=== PATIENT | female | born 1975 | race Caucasian/White ===

== ENCOUNTER 2018-02-28 16:50 | Emergency (ER) | payer OTHER ==
--- NOTE | 2018-02-28 18:16 | ED Physician Documentation ---
PD HPI ABD PAIN - Stated complaint Stated Complaint: ABDOMINAL/BACK PAIN - Chief complaint Chief Complaint: Abd Pain - History obtained from History obtained from: Patient, Family - History of Present Illness Timing - onset: How many weeks ago (1) Timing - duration: Weeks (1) Timing - details: Gradual onset Pain level max: 6 Pain level now: 5 Quality: Aching, Dull, Pain Location: LUQ Radiation: Left flank Improved by: Laying still Worsened by: Moving, Palpation. No: Breathing Associated symptoms: No: Fever, Nausea, Vomiting, Hematemesis, Diarrhea, Constipation, Melena, Hematochezia, Dysuria Similar symptoms before: Has not had sx before Recently seen: Clinic (PCP yesterday for same.) - Additional information Additional information: Patient is a 42-year-old female with a one-week history of left flank pain. She states that is worse when she moves or "scrunches herself up into a ball". She saw her PCP yesterday for same and thought it may be secondary to muscle pain, but she had increased pain today so came to the emergency department. No vomiting. No fevers. No blood in the urine. No dysuria. Has never had similar symptoms. Review of Systems Ten Systems: 10 systems reviewed and negative Constitutional: denies: Fever, Chills Ears: denies: Ear pain Nose: denies: Rhinorrhea / runny nose, Congestion Cardiac: denies: Chest pain / pressure Respiratory: denies: Cough Skin: denies: Rash Musculoskeletal: denies: Neck pain, Back pain Neurologic: denies: Focal weakness, Numbness PD PAST MEDICAL HISTORY - Past Medical History Past Medical History: Yes Psych: Depression - Past Surgical History Past Surgical History: No - Allergies Allergies/Adverse Reactions: Allergies Allergy/AdvReac Type Severity Reaction Status Date / Time No Known Drug Allergies Allergy Verified 02/28/18 17:03 - Living Situation Living Situation: reports: With family Living Arrangement: reports: At home - Social History Does the pt smoke?: No Does the pt drink ETOH?: No Does the pt have substance abuse?: No - Family History Family history: reports: Non contributory PD ED PE NORMAL - Vitals Vital signs reviewed: Yes - General General: Alert and oriented X 3, No acute distress, Well developed/nourished - HEENT HEENT: Moist mucous membranes - Neck Neck: Supple, no meningeal sign - Cardiac Cardiac: RRR, Strong equal pulses - Respiratory Respiratory: No respiratory distress, Clear bilaterally - Abdomen Abdomen: Normal bowel sounds, Soft, Non distended, Other (Mild tender palpation left upper quadrant and epigastric on deep palpation. No peritoneal signs.) - Back Back: No CVA TTP, No spinal TTP - Derm Derm: Warm and dry - Extremities Extremities: No edema, No calf tenderness / cord - Neuro Neuro: Alert and oriented X 3 - Psych Psych: Normal mood, Normal affect Results - Vitals Vitals: Vital Signs - 24 hr 02/28/18 02/28/18 02/28/18 16:57 18:42 20:26 Temperature 37.5 C Heart Rate 81 53 L 60 Respiratory 20 18 16 Rate Blood Pressure 136/86 H 122/93 H 127/83 H O2 Saturation 100 92 95 02/28/18 20:45 Temperature 36.3 C L Heart Rate 81 Respiratory 16 Rate Blood Pressure 110/64 O2 Saturation 100 Oxygen O2 Source Room air - Labs Labs: Laboratory Tests 02/28/18 02/28/18 02/28/18 08:10 18:10 18:10 WBC 7.0 RBC 4.14 L Hgb 13.2 Hct 39.3 MCV 94.8 MCH 32.0 H MCHC 33.7 RDW 11.8 L Plt Count 303 MPV 7.7 L Neut # (Auto) 3.8 Lymph # (Auto) 2.6 [place] # (Auto) 0.4 Eos # (Auto) 0.2 Baso # (Auto) 0.1 Absolute Nucleated RBC 0.00 Nucleated RBC % 0.0 D-Dimer Sodium 139 Potassium 3.4 L Chloride 105 Carbon Dioxide 27 Anion Gap 7.0 BUN 12 Creatinine 0.7 Estimated GFR (MDRD) 91 Glucose 90 Calcium 9.3 Total Bilirubin 0.4 AST 18 ALT 17 Alkaline Phosphatase 31 L Total Protein 6.7 Albumin 4.0 Globulin 2.7 Albumin/Globulin Ratio 1.5 Lipase 47 Urine Color YELLOW Urine Clarity CLEAR Urine pH 7.0 Ur Specific [place] <=1.005 Urine Protein NEGATIVE Urine Glucose (UA) NEGATIVE Urine Ketones NEGATIVE Urine Occult Blood NEGATIVE Urine Nitrite NEGATIVE Urine Bilirubin NEGATIVE Urine Urobilinogen 0.2 (NORMAL) Ur Leukocyte Esterase NEGATIVE Ur Microscopic Review NOT INDICATED Urine Culture Comments NOT INDICATED Urine HCG, Qual NEGATIVE 02/28/18 18:10 WBC RBC Hgb Hct MCV MCH MCHC RDW Plt Count MPV Neut # (Auto) Lymph # (Auto) [place] # (Auto) Eos # (Auto) Baso # (Auto) Absolute Nucleated RBC Nucleated RBC % D-Dimer 410.2 H Sodium Potassium Chloride Carbon Dioxide Anion Gap BUN Creatinine Estimated GFR (MDRD) Glucose Calcium Total Bilirubin AST ALT Alkaline Phosphatase Total Protein Albumin Globulin Albumin/Globulin Ratio Lipase Urine Color Urine Clarity Urine pH Ur Specific [place] Urine Protein Urine Glucose (UA) Urine Ketones Urine Occult Blood Urine Nitrite Urine Bilirubin Urine Urobilinogen Ur Leukocyte Esterase Ur Microscopic Review Urine Culture Comments Urine HCG, Qual - Rads (name of study) CT PA Radiology: Prelim report reviewed, EMP read contemporaneously, See rad report ( normal) PD MEDICAL DECISION MAKING - ED course Complexity details: reviewed results, re-evaluated patient, considered differential, d/w patient, d/w family ED course: Patient is a 42-year-old female who presents to the emergency department with left upper quadrant/left flank pain of unclear etiology. She did have a mildly elevated d-dimer and concern for possible left lower lobe pulmonary embolus causing left flank pain, CT pulmonary angiogram was negative. She declines any pain medication here or for home. Urinalysis is negative. No evidence of hydronephrosis or pyelonephritis on CT scan. No evidence of injury to the spleen. Unclear etiology of her symptoms. Possible musculoskeletal? We will have her follow-up with her doctor for further care. Patient counseled regarding signs and symptoms for which I believe and urgent re-evaluation would be necessary. Patient with good understanding of and agreement to plan and is comfortable going home at this time This document was made in part using voice recognition software. While efforts are made to proofread this document, sound alike and grammatical errors may occur. - Sepsis Event Vital Signs: Vital Signs - 24 hr 02/28/18 02/28/18 02/28/18 16:57 18:42 20:26 Temperature 37.5 C Heart Rate 81 53 L 60 Respiratory 20 18 16 Rate Blood Pressure 136/86 H 122/93 H 127/83 H O2 Saturation 100 92 95 02/28/18 20:45 Temperature 36.3 C L Heart Rate 81 Respiratory 16 Rate Blood Pressure 110/64 O2 Saturation 100 Oxygen O2 Source Room air Departure - Departure Disposition: 01 Home, Self Care Clinical Impression: Flank pain Condition: Good Instructions: ED Flank Pain Uncertain Cause Follow-Up: Leelee Manuel PA-C [Primary Care Provider] - Within 1 week Comments: Return if you worsen. The cause of your symptoms is unclear tonight. Discharge Date/Time: 02/28/18 20:50
[2018-02-28 18:23] LABS: BILIRUBIN,URINE NEGATIVE (NEGATIVE); GLUCOSE, URINE (UA) NEGATIVE (NEGATIVE); KETONES,URINE (UA) NEGATIVE (NEGATIVE); LEUKOCYTE ESTERASE, URINE NEGATIVE (NEGATIVE); NITRITE,URINE NEGATIVE (NEGATIVE); OCCULT BLOOD,URINE NEGATIVE (NEGATIVE); PROTEIN,URINE NEGATIVE (NEGATIVE); UROBILINOGEN,URINE 0.2 (NORMAL) E.U./dL (NORMAL)
[2018-02-28 18:28] LABS: CLARITY,URINE CLEAR (CLEAR); HCG UR QUAL NEGATIVE
[2018-02-28 18:28] LABS: BASOPHILS # (AUTO) 0.1 10^3/uL (0.0-0.1); BASOPHILS % (AUTO) 0.9 %; EOSINOPHILS # (AUTO) 0.2 10^3/uL (0.0-0.7); EOSINOPHILS % (AUTO) 2.5 %; HGB - HEMOGLOBIN 13.2 g/dL (12.0-16.0); LYMPHOCYTES # (AUTO) 2.6 10^3/uL (1.5-3.5); LYMPHOCYTES % (AUTO) 37.4 %; MEAN CORPUSCULAR HGB CONC 33.7 g/dL (32.0-36.0); MEAN CORPUSCULAR VOLUME 94.8 fL (81.0-99.0); MEAN PLATELET VOLUME 7.7 fL (7.9-10.8); MONOCYTES # (AUTO) 0.4 10^3/uL (0.0-1.0); MONOCYTES % (AUTO) 5.7 %; NEUTROPHILS # (AUTO) 3.8 10^3/uL (1.5-6.6); NEUTROPHILS % (AUTO) 53.5 %; PLT - PLATELET COUNT 303 10^3/uL (130-450); RED BLOOD COUNT 4.14 10^6/uL (4.20-5.40); RED CELL DISTRIBUTION WIDTH 11.8 % (12.0-15.0)
[2018-02-28 18:33] LABS: ALBUMIN/GLOBULIN RATIO 1.5 (1.0-2.2); BILIRUBIN,TOTAL 0.4 mg/dL (0.2-1.0); CALCIUM 9.3 mg/dL (8.5-10.3); CREATININE 0.7 mg/dL (0.4-1.0); TOTAL PROTEIN 6.7 g/dL (6.7-8.2)
[2018-02-28] MEDS ORDERED: IOPAMIDOL-300 100 ML VIAL ONE (19:21)
[2018-02-28] MEDS ORDERED: IOPAMIDOL-300 100 ML VIAL IVP ONE (19:36)
[2018-02-28] MEDS ORDERED: LIDOCAINE VISCOUS 2% 15 ML UDC MM STA (19:43)
[2018-02-28] MEDS ORDERED: MAG HYDROX/AL HYDROX/SIMETH 30 ML UDC PO STA (19:43)
[2018-02-28] MEDS ORDERED: PHENobarb/HYOSCY/ATROPINE/SCOP 5 ML UDC PO STA (19:43)
[2018-02-28] MEDS ORDERED: SUCRALFATE 1 GM/10 ML UDC PO STA (19:43)
--- NOTE | 2018-02-28 20:03 | CT Preliminary Report ---
Exam: CT CHEST ANGIO (PE) IMPRESSION: Normal pulmonary CT angiogram. No pulmonary emboli. [facility] SITE ID: [id number]
--- NOTE | 2018-02-28 20:03 | CT Report ---
EXAM: CT ANGIOGRAM CHEST EXAM DATE: 02/28/2018 07:45 PM. CLINICAL HISTORY: L flank pain, elevated d-dimer. COMPARISON: None. TECHNIQUE: Routine helical imaging was performed through the chest in the pulmonary arterial phase. I V Contrast: 80ML ISOVUE 300. Reconstructions: Coronal 3-D MIP reconstructions.Sagittal and coronal. In accordance with CT protocol optimization, one or more of the following dose reduction techniques w ere utilized for this exam: automated exposure control, adjustment of mA and/or KV based on patient s ize, or use of iterative reconstructive technique. FINDINGS: Pulmonary Arteries: Diagnostic quality: Adequate through the segmental arteries. No evidence for acute or chronic pulmona ry emboli. RV/LV is within normal limits. There is no interventricular septal bowing. There is no reflux of cont rast material in the IVC. Lungs/Pleura: No consolidation, nodules, or edema. No effusions or pneumothorax. Mediastinum: Normal. No cardiac enlargement or adenopathy. Thoracic Aorta: Unremarkable. Upper Abdomen: Unremarkable. Other: None. IMPRESSION: Normal pulmonary CT angiogram. No pulmonary emboli. [facility] Referring Provider Line: [phone] SITE ID: [id number]
[2018-02-28 21:42] VITALS: BP 110/64
== END 2018-02-28 20:50 | disposition home or self-care (01) ==
LOC: ED 16:50
DX: R10.12 Left upper quadrant pain (principal); R10.32 Left lower quadrant pain
CPT/HCPCS: 36415; 71275; 80053; 81003; 81025; 83690; 85025; 85379; 99283; A9270; Q9967; 81001; 87086

== ENCOUNTER 2019-03-11 08:16 | Emergency (ER) | payer OTHER ==
[2019-03-11] MEDS ORDERED: diphenhydrAMINE 25 MG CAPSULE PO STA (08:29)
[2019-03-11] MEDS ORDERED: FAMOTIDINE 20 MG TABLET PO STA (08:29)
[2019-03-11] MEDS ORDERED: predniSONE 20 MG TABLET PO STA (08:29)
--- NOTE | 2019-03-11 08:36 | ED Physician Documentation ---
History of Present Illness - Stated complaint Stated Complaint: ALLERGIC REACTION - Chief complaint Chief Complaint: Allergic Rx - History obtained from History obtained from: Patient - History of Present Illness Timing: Prior to arrival - Additonal information Additional information: Patient is a 43-year-old female presenting with concerns for possible allergic reaction. Patient reports that she has been taking all of her prescription and rrqz-kur-eahsoyi supplement medications appropriately and did so this morning. Patient reports taking turmeric, vitamin B, and CBD oil. No niacin. Patient believes she may have taken more than her usual CBD oil. Patient otherwise denies any new medications, foods, lotions, chemicals, detergents. Patient denies any other kind of exposure. Patient has no known allergies. Patient complains of rushing to chest and arms with mild burning sensation, as well as scratchy throat. No difficulty swallowing or breathing. No other oral swelling, hives, or rash. Patient has not yet taken any medications. No other improving or worsening factors noted. 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 - Present Medications Home Medications: Ambulatory Orders Medication Instructions Recorded Confirmed B-Complex with Vitamin C [Vitamin 1 each PO DAILY 03/11/19 03/11/19 B-Complex with Vit C] Bupropion HCl [Wellbutrin Xl] 300 mg PO DAILY 03/11/19 03/11/19 Cholecalciferol [Vitamin D3] 1 cap PO DAILY 03/11/19 03/11/19 Turmeric Root Extract [Turmeric 500 mg PO DAILY 03/11/19 03/11/19 Curcumin] lamoTRIgine [Lamictal] 1 tab PO DAILY 03/11/19 03/11/19 predniSONE [Deltasone] 10 mg PO [id number] #42 tab 03/11/19 - Allergies Allergies/Adverse Reactions: Allergies Allergy/AdvReac Type Severity Reaction Status Date / Time No Known Drug Allergies Allergy Verified 03/11/19 08:27 - Social History Does the pt smoke?: No Smoking Status: Never smoker Does the pt drink ETOH?: No Does the pt have substance abuse?: No - Immunizations Immunizations are current?: Yes PD ED PE NORMAL - Vitals Vital signs reviewed: Yes - General General: Alert and oriented X 3, No acute distress, Well developed/nourished - HEENT HEENT: Atraumatic, Moist mucous membranes, Pharynx benign, Dentition benign, Other (No lip or intraoral swelling noted) - Cardiac Cardiac: RRR, No murmur - Respiratory Respiratory: No respiratory distress, Clear bilaterally - Abdomen Abdomen: Soft, Non tender, Non distended - Derm Derm: Warm and dry, No rash. No: Normal color (Slight flushing to upper chest and both arms) - Extremities Extremities: No deformity, No tenderness to palpate - Neuro Neuro: Alert and oriented X 3, No motor deficit, No sensory deficit - Psych Psych: Other (Slightly anxious) Results - Vitals Vitals: Vital Signs - 24 hr 03/11/ 08:20 Temperature 36.8 C Heart Rate 73 Respiratory 20 Rate Blood Pressure 132/93 H O2 Saturation 96 Oxygen O2 Source Room air PD MEDICAL DECISION MAKING - ED course Complexity details: re-evaluated patient, considered differential, d/w patient ED course: Patient presenting with concern for possible allergic reaction. Patient has no known allergies and has no new exposures except patient did use slightly more than her usual CBD oil. However, did not find evidence of particular intoxication, toxidrome, or withdrawal symptoms.No obvious hives or other rash on exam, but mild flushing. Patient denies any use of niacin. No intraoral issues. At this time, felt most appropriate to treat as allergic reaction with oral medications. No anaphylaxis symptoms found and patient does not require epinephrine. Discussed treatment plan with patient who is comfortable with such. Otherwise, do not feel she requires invasive testing, imaging, consult, hospitalization at this time. Patient continued to be monitored in the ED with resolution of symptoms and no recurrence. Patient comfortable with discharge home on oral prednisone and discussed other malx-rkm-lyebwmv medications, supportive cares, return precautions, and follow-up. Patient voiced understanding and comfortable with discharge plan.Of note, do not feel patient requires EpiPen prescription at this time given low suspicion for anaphylaxis or other significant allergic reaction. Departure - Departure Disposition: 01 Home, Self Care Clinical Impression: Allergic reaction Qualifiers: Encounter type: initial encounter Qualified Code(s): T78.40XA - Allergy, unspecified, initial encounter Condition: Good Instructions: ED Allergic Reaction General Other Follow-Up: Leelee Tyler ARNP, INDUSTRIAL [employer]ATIONS WORKER-C [Primary Care Provider] - Within 3 Days Prescriptions: predniSONE [Deltasone] 10 mg PO [id number] #42 tab Comments: Please take steroids as prescribed to help avoid any recurrence of allergic reaction. If needed, may use tdkb-epw-xiembcy antihistamine such as Benadryl. Recommend follow-up with primary care physician in next 2 to 3 days and return to ED sooner if experience recurrence of reaction or other concerns.
[2019-03-11 10:12] VITALS: BP 124/70
== END 2019-03-11 10:12 | disposition home or self-care (01) ==
LOC: ED 08:16
DX: T78.40XA Allergy, unspecified, initial encounter (principal); F32.9 Major depressive disorder, single episode, unspecified
CPT/HCPCS: 99283; A9270; J7512

== ENCOUNTER 2019-03-22 14:34 | Outpatient (CLI) | payer OTHER ==
--- NOTE | 2019-03-23 12:03 | Mammography Report ---
Reason: SCREENING MAMMOGRAM FOR BREAST CANCER Procedure Date: 03/22/2019 Accession Number: [id number] / [id number] Procedure: LYNDSAY - Screening Mammo w/[facility] CPT Code: FULL RESULT: EXAM: Screening Mammo w/[facility] DATE: 03/22/2019 3:27 PM CLINICAL HISTORY: Routine screening TECHNIQUE: (B) - Bilateral CC and MLO views were obtained. COMPARISON: 11/23/2010 PARENCHYMAL PATTERN: (D) - The breasts demonstrate heterogeneously dense fibroglandular parenchyma bilaterally. FINDINGS: No significant interval change. There are no suspicious masses, calcifications, or areas of distortion. IMPRESSION: Negative examination. BI-RADS category 1. RECOMMENDATION: (ANNUAL) - Recommend routine annual screening mammography. BI-RADS CATEGORY: (1) - Negative. STANDARD QUALIFYING STATEMENTS: 1. This examination was not reviewed with the aid of Computer-Aided Detection (CAD). 2. A negative or benign imaging report should not preclude biopsy if clinically suspicious findings are present. 3. Dense breasts may obscure an underlying neoplasm. 4. This examination was reviewed with the aid of 3D breast imaging (tomosynthesis).
== END 2019-03-22 14:35 | disposition home or self-care (01) ==
LOC: DI 14:34
PROVIDERS: ATTEND Nurse Practitioner
DX: Z12.31 Encounter for screening mammogram for malignant neoplasm of breast (principal)
CPT/HCPCS: 77063; 77067

== ENCOUNTER 2020-12-11 11:29 | Outpatient (CLI) | payer OTHER ==
--- NOTE | 2020-12-12 09:28 | Mammography Report ---
BILATERAL DIGITAL SCREENING MAMMOGRAM 3D/2D: 12/11/2020 CLINICAL: Routine screening. Comparison is made to exams dated: 03/22/2019 mammogram, 11/23/2010 mammogram, and 11/23/2010 ultrasound - [facility]. There are scattered fibroglandular elements in both breasts. No significant masses, calcifications, or other findings are seen in either breast. There has been no significant interval change. IMPRESSION: NEGATIVE There is no mammographic evidence of malignancy. A 1 year screening mammogram is recommended. This exam was interpreted at Station ID: [id number]. NOTE: For mammograms, a report in lay terms will be sent to the patient. Approximately 15% of breast malignancies will not be visualized mammographically. In the management of a palpable breast mass, a negative mammogram must not discourage biopsy of a clinically suspicious lesion. Electronically Signed By: Dionicio Chapin acr/penrad:12/11/2020 12:44:26 ACR BI-RADS Category 1: Negative 3341F PARENCHYMAL PATTERN: (A) - The breast(s) demonstrate(s) scattered fibroglandular densities. BI-RADS CATEGORY: (1) - 1 RECOMMENDATION: (ANNUAL) - Recommend routine annual screening mammography. [id number] 1 year screening LATERALITY: (B)
== END 2020-12-11 11:30 | disposition home or self-care (01) ==
LOC: DI.N 11:29
PROVIDERS: ATTEND Nurse Practitioner Obstetrics & Gynecology
DX: Z12.31 Encounter for screening mammogram for malignant neoplasm of breast (principal)

== ENCOUNTER 2021-05-29 18:44 | Emergency (ER) | payer OTHER ==
[2021-05-29 19:21] LABS: BILIRUBIN,URINE NEGATIVE (NEGATIVE); GLUCOSE, URINE (UA) NEGATIVE (NEGATIVE); KETONES,URINE (UA) 15 mg/dL (NEGATIVE); LEUKOCYTE ESTERASE, URINE NEGATIVE (NEGATIVE); NITRITE,URINE NEGATIVE (NEGATIVE); OCCULT BLOOD,URINE NEGATIVE (NEGATIVE); PROTEIN,URINE NEGATIVE (NEGATIVE); UROBILINOGEN,URINE 0.2 (NORMAL) E.U./dL (NORMAL)
[2021-05-29 19:22] LABS: BASOPHILS # (AUTO) 0.1 10^3/uL (0.0-0.1); BASOPHILS % (AUTO) 0.7 %; EOSINOPHILS # (AUTO) 0.2 10^3/uL (0.0-0.7); EOSINOPHILS % (AUTO) 2.1 %; HCT - HEMATOCRIT 40.1 % (37.0-47.0); HGB - HEMOGLOBIN 13.5 g/dL (12.0-16.0); LYMPHOCYTES % (AUTO) 23.7 %; MEAN CORPUSCULAR HEMOGLOBIN 32.3 pg (27.0-31.0); MEAN CORPUSCULAR HGB CONC 33.7 g/dL (32.0-36.0); MEAN CORPUSCULAR VOLUME 95.9 fL (81.0-99.0); MEAN PLATELET VOLUME 9.2 fL (7.9-10.8); MONOCYTES # (AUTO) 0.5 10^3/uL (0.0-1.0); MONOCYTES % (AUTO) 6.1 %; NEUTROPHILS # (AUTO) 5.5 10^3/uL (1.5-6.6); PLT - PLATELET COUNT 313 10^3/uL (130-450); RED BLOOD COUNT 4.18 10^6/uL (4.20-5.40); RED CELL DISTRIBUTION WIDTH 11.6 % (12.0-15.0); WHITE BLOOD COUNT 8.2 x10^3/uL (4.8-10.8)
[2021-05-29 19:22] LABS: CLARITY,URINE CLEAR (CLEAR); HCG UR QUAL NEGATIVE
[2021-05-29 19:33] LABS: ALBUMIN 4.4 g/dL (3.2-5.5); ALBUMIN/GLOBULIN RATIO 1.7 (1.0-2.2); BILIRUBIN,TOTAL 0.8 mg/dL (0.2-1.0); CALCIUM 9.9 mg/dL (8.5-10.3); CREATININE 0.8 mg/dL (0.4-1.0); POTASSIUM 3.5 mmol/L (3.5-5.0)
--- NOTE | 2021-05-29 21:54 | ED Physician Documentation ---
PD HPI ABD PAIN - Stated complaint Stated Complaint: ABD PX - Chief complaint Chief Complaint: Abd Pain - History obtained from History obtained from: Patient - History of Present Illness Timing - onset: Today (at 4 pm, so 3 hours ago) Timing - duration: Hours (3) Timing - details: Abrupt onset, Still present Quality: Cramping, Aching, Pain Location: RLQ Radiation: Right flank. No: Chest Improved by: Laying still. No: Eating Worsened by: Moving, Palpation. No: Breathing Associated symptoms: Nausea. No: Fever, Vomiting, Diarrhea, Constipation (has had some firmer stools but were softer yesterday. No prior abd surgery.) Review of Systems Constitutional: denies: Fever, Chills Nose: denies: Rhinorrhea / runny nose, Congestion Throat: denies: Sore throat Cardiac: denies: Chest pain / pressure Respiratory: denies: Cough GI: reports: Abdominal Pain, Nausea. 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 HEENT: Tonsil/Adenoidectomy - Present Medications Home Medications: Ambulatory Orders Medication Instructions Recorded Confirmed B-Complex with Vitamin C [Vitamin 1 each PO DAILY 03/11/19 03/11/19 B-Complex with Vit C] Bupropion HCl [Wellbutrin Xl] 300 mg PO DAILY 03/11/19 03/11/19 Cholecalciferol [Vitamin D3] 1 cap PO DAILY 03/11/19 03/11/19 Turmeric Root Extract [Turmeric 500 mg PO DAILY 03/11/19 03/11/19 Curcumin] lamoTRIgine [Lamictal] 1 tab PO DAILY 03/11/19 03/11/19 predniSONE [Deltasone] 10 mg PO [id number] #42 tab 03/11/19 - Allergies Allergies/Adverse Reactions: Allergies Allergy/AdvReac Type Severity Reaction Status Date / Time No Known Drug Allergies Allergy Verified 05/29/21 18:56 - Social History Does the pt smoke?: No Smoking Status: Never smoker Does the pt drink ETOH?: No Does the pt have substance abuse?: No - Immunizations Immunizations are current?: Yes - POLST Patient has POLST: No PD ED PE NORMAL - Vitals Vital signs reviewed: Yes - General General: Alert and oriented X 3, Well developed/nourished, Other (appears in just mild pain; mostly comfortable. ) - HEENT HEENT: Pharynx benign - Neck Neck: Supple, no meningeal sign, No adenopathy - Cardiac Cardiac: RRR, No murmur - Respiratory Respiratory: Clear bilaterally - Abdomen Abdomen: Soft, Non distended, No organomegaly, Other (tender right lower abd with guarding and mild percussion tender.) - Female Female : Deferred - Rectal Rectal: Deferred - Back Back: No CVA TTP - Derm Derm: Normal color, Warm and dry - Neuro Neuro: Alert and oriented X 3, No motor deficit, Normal speech Results - Vitals Vitals: Oxygen O2 Source Room air - Labs Labs: Laboratory Tests 05/29/21 05/29/21 05/29/21 19:08 19:14 19:14 WBC 8.2 RBC 4.18 L Hgb 13.5 Hct 40.1 MCV 95.9 MCH 32.3 H MCHC 33.7 RDW 11.6 L Plt Count 313 MPV 9.2 Neut # (Auto) 5.5 Lymph # (Auto) 2.0 [place] # (Auto) 0.5 Eos # (Auto) 0.2 Baso # (Auto) 0.1 Absolute Nucleated RBC 0.00 Nucleated RBC % 0.0 Sodium 139 Potassium 3.5 Chloride 104 Carbon Dioxide 25 Anion Gap 10.0 BUN 14 Creatinine 0.8 Estimated GFR (MDRD) 77 L Glucose 109 H Calcium 9.9 Total Bilirubin 0.8 AST 18 ALT 19 Alkaline Phosphatase 36 L Total Protein 7.0 Albumin 4.4 Globulin 2.6 Albumin/Globulin Ratio 1.7 Lipase 41 Urine Color YELLOW Urine Clarity CLEAR Urine pH 6.0 Ur Specific [place] 1.020 Urine Protein NEGATIVE Urine Glucose (UA) NEGATIVE Urine Ketones 15 H Urine Occult Blood NEGATIVE Urine Nitrite NEGATIVE Urine Bilirubin NEGATIVE Urine Urobilinogen 0.2 (NORMAL) Ur Leukocyte Esterase NEGATIVE Ur Microscopic Review NOT INDICATED Urine Culture Comments NOT INDICATED Urine HCG, Qual NEGATIVE - Rads (name of study) abd/pelvic CT Radiology: Prelim report reviewed (no acute infection. Some thick ileum wall and dense stool, so might be cause. IUD in place. Else normal. ), See rad report PD MEDICAL DECISION MAKING - ED course Complexity details: considered differential (Abrupt pain and tenderness in the right lower quadrant. Could be atypical appendix. Consider other causes such as ruptured ovary, twisted ovary, ureterolithiasis or other concerns. Think a CT will be appropriate for all of the considerations.), d/w patient Departure - Departure Disposition: Home, Self Care Clinical Impression: Abdominal pain Qualifiers: Abdominal location: right lower quadrant Qualified Code(s): R10.31 - Right lower quadrant pain Condition: Stable Record reviewed to determine appropriate education?: Yes Instructions: ED Abdominal Pain Unkn Cause Comments: Your CT scan and urine test are good. No signs of gallbladder problems nor pancreatitis. No swelling of the kidneys no kidney stones. Your appendix is normal without any signs of infection. Your IUD is present in place without any signs of displacement. No mention of ovarian abnormality. There is mention of some mild distention in the right aspect of the colon with stool. This may be creating a local stretching and cramping effect. Stay well-hydrated. Use your MiraLAX at home tomorrow dose in the morning and repeat every couple of hours through the day until you are having softer stool in a moderate amount. Do not over take it as you do not want to really cleanse out per se. Continue with the daily after that for the next week or 2. Tylenol ibuprofen as needed for pains. Follow-up if not improved over the next couple of days and return if worsening or other associated symptoms. Discharge Date/Time: 05/30/21 00:56
[2021-05-29] MEDS ORDERED: KETOROLAC 15 MG/ML VIAL IVP STA (22:15)
[2021-05-29] MEDS ORDERED: IOPAMIDOL-300 100 ML VIAL ONE (22:29)
[2021-05-29] MEDS ORDERED: IOPAMIDOL-300 100 ML VIAL IVP ONE (22:51)
[2021-05-30 00:58] VITALS: BP 120/75
--- NOTE | 2021-05-30 10:36 | CT Report ---
PROCEDURE: Abdomen/Pelvis W INDICATIONS: RLQ/right abd pain today CONTRAST: IV CONTRAST: Isovue 300 ml: 100 PO CONTRAST: *NO PO CONTRAST TECHNIQUE: After the administration of intravenous contrast, 5 mm thick sections acquired from the diaphragms to the symphysis. 5 mm thick coronal and sagittal reformats were acquired. For radiation dose reducti on, the following was used: automated exposure control, adjustment of mA and/or kV according to brady ent size. COMPARISON: CT abdomen with contrast, 06/30/2009. FINDINGS: Image quality: Excellent. ABDOMEN: Lung bases: Lung bases are clear. Heart size is normal. Solid organs: Liver and spleen are normal in size and enhancement. Gallbladder is normal. Biliary system is non dilated. Pancreas enhances normally. No adrenal nodules. Kidneys demonstrate normal size and enhancement, without hydronephrosis. Peritoneum and bowel: Appendix is normal. Terminal ileum may be mildly thickened Bowel loops demonst rate normal caliber. There is a large amount of stool in colon. No free fluid or air. Nodes and vessels: No retroperitoneal or mesenteric adenopathy by size criteria. Aorta and inferior vena cava are normal in size. Miscellaneous: No ventral hernias. PELVIS: Genitourinary: Bladder wall thickness is normal. Uterus is normal. There is a IUD. Ovaries are unrem arkable. Trace amount of free fluid in the cul-de-sac is likely within physiological limits. Miscellaneous: No inguinal hernias or adenopathy. Bones: No suspicious bony lesions. No vertebral body compression fractures. IMPRESSION: 1. Appendix is normal. 2. Terminal ileum may be mildly thickened although the appearance could be due to inadequate distenti on. If clinical symptoms persist, CT enterography may be helpful. 3. A large amount of stool in colon. 4. IUD in uterus. Ovaries are unremarkable. A trace amount of free fluid in the cul-de-sac is likely within physiological limits. No significant discrepancy with the preliminary interpretation. Please note the finding related to te rminal ileum was not discussed in the preliminary report. Result was discussed with Dr. Salmon. Reviewed by: Pratibha Long MD on 05/30/2021 10:35 AM PDT Approved by: Pratibha Long MD on 05/30/2021 10:35 AM PDT Station ID: [id number]
--- NOTE | 2021-05-30 10:36 | ED Physician Documentation ---
ED Addendum - Addendum Addendum: 05/30/21 10:36 Took call from radiologist over read with possible terminal ileitis. Left voicemail for patient to call back for results and plan. 05/30/21 11:51 She called back while I was doing the procedure. The nurse notified her of the finding of possible terminal ileitis and the need for follow-up with consideration for colonoscopy.
== END 2021-05-30 00:56 | disposition home or self-care (01) ==
LOC: ED 18:44
DX: R10.31 Right lower quadrant pain (principal)
CPT/HCPCS: 36415; 74177; 80053; 81003; 81025; 83690; 85025; 96374; 99284; Q9967; 81001; 87086

== ENCOUNTER 2022-07-08 11:21 | Outpatient (CLI) | payer OTHER ==
--- NOTE | 2022-07-09 10:33 | Mammography Report ---
BILATERAL DIGITAL SCREENING MAMMOGRAM 3D/2D: 07/08/2022 CLINICAL: Routine screening. Comparison is made to exams dated: 12/11/2020 mammogram, 03/22/2019 mammogram, and 11/23/2010 mammogram - [facility]. Both breasts are heterogeneously dense, which may obscure small masses (category c / 51-75% glandula r tissue). No significant masses, calcifications, or other findings are seen in either breast. There has been no significant interval change. IMPRESSION: NEGATIVE There is no mammographic evidence of malignancy. A 1 year screening mammogram is recommended. Based on the Tyrer Cuzick model (a risk assessment model) the patients lifetime risk is 10.7% and he r 10 year risk is 2.2%. According to the ACR, ACS, and NCCN guidelines, an annual breast MRI exam crystal ng with mammogram is recommended if the patients lifetime risk is 20% or greater. This exam was interpreted at Station ID: [id number]. NOTE: For mammograms, a report in lay terms will be sent to the patient. Approximately 15% of breast malignancies will not be visualized mammographically. In the management of a palpable breast mass, a negative mammogram must not discourage biopsy of a clinically suspicious lesion. Electronically Signed By: Manju rodriguez/jose de jesus:07/08/2022 15:53:08 ACR BI-RADS Category 1: Negative 3341F PARENCHYMAL PATTERN: (D) - The breast(s) demonstrate(s) heterogeneously dense fibroglandular parvaleria ma. BI-RADS CATEGORY: (1) - 1 RECOMMENDATION: (ANNUAL) - Recommend routine annual screening mammography. [id number] 1 year screening LATERALITY: (B)
== END 2022-07-08 11:22 | disposition home or self-care (01) ==
LOC: DI 11:21
PROVIDERS: ATTEND Nurse Practitioner
DX: Z12.31 Encounter for screening mammogram for malignant neoplasm of breast (principal)